=== PATIENT | male | born 1995 | race Caucasian/White ===

== ENCOUNTER 2024-07-13 14:48 | Emergency (ER) | payer MEDICARE, OTHER, SELFPAY ==
[2024-07-13 15:01] VITALS: BP 124/69; PULSE 111; RESP 20; TEMP 36.6; O2SAT 100
--- NOTE | 2024-07-13 15:09 | ED.WOUNDLAC ---
HPI - Wound/Laceration General Chief Complaint: Wound/Laceration Stated Complaint: Stitches Time Seen by Provider: 07/13/24 15:05 Source: patient Mode of arrival: ambulatory Limitations: no limitations History of Present Illness HPI narrative: Hernando is a 29 year old developmentally disabled/autistic male patient presenting to the clinic today with c/o a chin laceration. Parents report that he had balance issues and he fell this morning around 6:00 a.m. when getting up causing his chin laceration to re-open states he feel a few days earlier and the wound had scabbed over. Today he reopened the wound and has a more extensive laceration to the chin. No loss of consciousness. He does not take any blood thinners. Parents report that they did give him an Xanax to help keep him calm prior to coming into the clinic today. Related Data Home Medications ?Medication ?Instructions ?Recorded ?Confirmed ?Last Taken ?Type chlorpromazine 50 mg tablet 50 mg PO TID 07/15/19 01/31/24 Unknown History omega-3 fatty acids 1,000 mg 1,000 mg PO DAILY 07/15/19 01/31/24 Unknown History capsule (Fish Oil Concentrate) quetiapine 100 mg tablet (Seroquel) 100 mg PO DAILY 07/15/19 01/31/24 Unknown History topiramate 25 mg tablet (Topamax) 50 mg PO BID 07/15/19 01/31/24 Unknown History cetirizine 10 mg tablet (Zyrtec) 10 mg PO DAILY PRN 04/26/21 01/31/24 Unknown History cholecalciferol (vitamin D3) 50 50 mcg PO DAILY 08/28/22 01/31/24 Unknown History mcg (2,000 unit) capsule temazepam 30 mg capsule 30 mg PO QHS PRN 08/29/22 01/31/24 Unknown History alprazolam 1 mg tablet (Xanax) 1 mg PO TID PRN 01/31/24 01/31/24 Unknown History clonazepam 1 mg tablet 1 mg PO QHS 01/31/24 01/31/24 Unknown History benztropine 2 mg tablet mg 07/13/24 Unknown History chlorpromazine 200 mg tablet mg 07/13/24 Unknown History clonazepam 2 mg disintegrating mg 07/13/24 Unknown History tablet memantine 10 mg tablet mg 07/13/24 Unknown History moxifloxacin 0.5 % eye drops drp 07/13/24 Unknown History quetiapine 300 mg tablet mg 07/13/24 Unknown History topiramate 100 mg tablet mg 07/13/24 Unknown History Allergies Allergy/AdvReac Type Severity Reaction Status Date / Time aripiprazole Allergy Intermediate Vomiting Verified 08/29/22 14:47 Review of Systems Review of Systems: Pertinent positives per HPI. Patient denies any fever, chills, rash, headache, visual changes, dizziness, cough, runny nose, sore throat, shortness of breath, chest pain, palpitations, nausea, vomiting, diarrhea, constipation, abdominal pain, or any urinary issues. [facility] Past Medical History Medical History BMI 28.0-28.9,adult BMI 32.0-32.9,adult Symbolic dysfunction Poor sleep Hx of primary hypertension Vitamin D deficiency BMI 31.0-31.9,adult BMI 35.0-35.9,adult Hyperlipidemia BMI 38.0-38.9,adult BMI 37.0-37.9, adult Functional incontinence Mental disability BMI 39.0-39.9,adult Encounter for routine adult health examination without abnormal findings On skilled nursing drug therapy Hypothyroidism (acquired) Abnormal gait Family History Family History Father Family history of alcoholism Mother Family history of malignant neoplasm Other Diabetes mellitus Family history of mental disorder Family history of osteoarthritis Hypertension Social History Social History Smoking status: Never smoker Second hand tobacco smoke exposure: No Alcohol intake: never Lack of Transportation: No Lack of Food: Never True Current Housing: I Have Housing Concerned About Future Housing: No Difficulty Paying Gas/Electric Bills: No Difficulty Paying for Meds: No Currently Unemployed: No Education: High School Diploma/GED Difficulty w/ Childcare or Family Care: YES Living arrangements: with family Occupation/Education: other Additional occupation/education comments: disabled Gender identity (if verbalized by the patient): Male Comments At the time of my signature, I reviewed and agree with the nursing past medical, surgical, social, and family history. There is no relevant family history pertinent to the patient complaint. Exam Narrative: General: Well-developed, well nourished, in no apparent distress Head: Normocephalic, atraumatic. Cardio: Regular rate and rhythm, s1 and s2 normal, no murmur appreciated. Resp: Clear to auscultation bilaterally, no rhonchi, rales, wheezing or rubs. Integumentary: [place], warm, and dry, 2 cm chin laceration with mild to moderate gaping. Bleeding controlled. Course Course Emergency Course: Portions of this record may have been created with voice recognition software. Level of Care: Express Care Visit Vital Signs Vital signs: Vital Signs Temperature 36.6 C 07/13/24 15:01 Pulse Rate 111 H 07/13/24 15:01 Respiratory Rate 20 07/13/24 15:01 Blood Pressure 124/69 07/13/24 15:01 Pulse Oximetry 100 07/13/24 15:01 Temperature 36.6 C 07/13/24 15:01 Pulse Rate 111 H 07/13/24 15:01 Respiratory Rate 20 07/13/24 15:01 Blood Pressure 124/69 07/13/24 15:01 Pulse Oximetry 100 07/13/24 15:01 Vital signs reviewed Procedures Laceration Laceration 1: Date: 07/13/24 Site: face (chin) Description: linear and clean Depth: simple, single layer Local Anesthetic: lidocaine 1% and with epi Amount of anesthesia used (mL): 2 Pre-repair: wound explored and irrigated ====== Skin Level ====== Skin layer closed with: nylon Size (cm): 5-0 Number of sutures: 6 Technique: simple, interrupted ====== Subcutaneous Layer ====== ====== Muscle Layer ====== ====== Tendon Layer ====== Dressing: Verbal consent obtained for laceration repair. Risk and benefits explained and patient voiced understanding. Area was cleansed with antiseptic wound wash and a 27 gauge needle was then used to instill (2) ml of 1% lidocaine with epi into the wound edges. Area was prepped and draped using sterile technique. A 5-0 suture on a p needle was used to place (6) interrupted sutures bringing the wound edges together- well approximated. Patient tolerated procedure well. Sterile dressing applied. e MDM - Wound/Laceration MDM Narrative Medical decision making narrative: At the time of visit patient is resting comfortably on the exam table. Patient appears to be nontoxic. Procedures: Laceration repair was performed in the clinic today. Interrupted sutures were placed bringing the wound edges well approximate. Patient tolerated procedure well. Plan: Laceration repair was performed. Will place patient on Keflex to cover for secondary infections as this wound is approximately 9-10 hours old. Supportive measures were discussed with the patient and they voiced understanding discharge instructions and agrees to treatment plan. Return precautions reviewed Differential Diagnosis Differential diagnosis: Likely laceration, abscess, abrasion and avulsion of skin Discharge Plan Discharge Clinical Impression: Chin laceration Qualifiers: Encounter type: initial encounter Qualified Code(s): S01.81XA - Laceration without foreign body of other part of head, initial encounter Patient Disposition: Home, Self-Care Condition: Stable Instructions: Antibiotic Form, Care For Your Stitches (ED), Laceration (ED) Additional Instructions: Tdap given in the clinic today Take cephalexin as prescribed Leave bandage on for 24 hours then may remove and apply band aide covering as needed. Wash daily with soap and water and pat dry Do not scrub, scratch, or pick at the stitches. Keep wound clean and dry Skin sutures out in 7 days. Watch for signs and symptoms of infection- redness, streaking, swelling, purulent discharge, or increase in pain. Follow up with your PCP for suture removal or return to the [facility] care. Patient Language: Setswana Prescriptions: New cephalexin 500 mg capsule 500 mg PO Q12H 7 Days Qty: 14 0RF No Action quetiapine 300 mg tablet benztropine 2 mg tablet chlorpromazine 200 mg tablet topiramate 100 mg tablet clonazepam 2 mg tablet,disintegrating moxifloxacin 0.5 % drops memantine 10 mg tablet alprazolam [Xanax] 1 mg tablet 1 mg PO TID PRN clonazepam 1 mg tablet 1 mg PO QHS Rx Instructions: administer 30 minutes before bedtime temazepam 30 mg capsule 30 mg PO QHS PRN chlorpromazine 50 mg tablet 50 mg PO TID topiramate [Topamax] 25 mg tablet 50 mg PO BID quetiapine [Seroquel] 100 mg tablet 100 mg PO DAILY omega-3 fatty acids [Fish Oil Concentrate] 1,000 mg capsule 1,000 mg PO DAILY cetirizine [Zyrtec] 10 mg tablet 10 mg PO DAILY PRN divalproex [Depakote] 500 mg tablet,delayed release (DR/EC) 1,000 mg PO Q12H Qty: 270 1RF cholecalciferol (vitamin D3) 50 mcg (2,000 unit) capsule 50 mcg PO DAILY levothyroxine 100 mcg tablet See Rx Instructions .ROUTE .COMPLEX Qty: 90 1RF Dose Instruction: TAKE ONE TABLET BY MOUTH ONCE DAILY Rx Instructions: TAKE ONE TABLET BY MOUTH ONCE DAILY atorvastatin 10 mg tablet See Rx Instructions .ROUTE .COMPLEX Qty: 90 1RF Dose Instruction: TAKE 1 TABLET BY MOUTH EVERY DAY Rx Instructions: TAKE 1 TABLET BY MOUTH EVERY DAY Follow-up/Referrals: Valerio Oglesby MD [Primary Care Provider] - Time of Disposition: 15:40 Quality NIHSS Nursing Documentation ED NIHSS nursing documentation: reviewed/agree
[2024-07-13] MEDS: TETANUS,DIPHTHERIA,AC PERTUSSIS ADULT (0.5 ML) BOOSTRIX IM (15:18)
== END 2024-07-13 15:48 | disposition home or self-care (01) ==
PROVIDERS: Emergency Provider Nurse Practitioner Family; PCP Internal Medicine
DX: S01.81XA Laceration without foreign body of other part of head, initial encounter (principal); W19.XXXA Unspecified fall, initial encounter; Z23 Encounter for immunization; I10 Essential (primary) hypertension; E78.5 Hyperlipidemia, unspecified; F84.0 Autistic disorder; F79 Unspecified intellectual disabilities; E55.9 Vitamin D deficiency, unspecified
CPT/HCPCS: 12011; 90471; 90715; 99213; G0463

== ENCOUNTER 2024-07-20 14:14 | Emergency (ER) | payer MEDICARE, SELFPAY ==
--- NOTE | 2024-07-20 14:25 | ED.GENADULT ---
HPI - General Adult General Chief complaint: Wound/Laceration Stated complaint: stitches removal Time Seen by Provider: 07/20/24 14:25 Source: patient Mode of arrival: ambulatory Limitations: no limitations History of Present Illness HPI narrative: 29-year-old male patient presents to the Express with his parents for a suture removal. Patient had 6 stitches placed to the chin last weekend due to a fall. No parents states they have been cleaning it with soap water and putting antibiotic ointment on and keeping it covered. Denies any complications Related Data Home Medications ?Medication ?Instructions ?Recorded ?Confirmed ?Last Taken ?Type chlorpromazine 50 mg tablet 50 mg PO TID 07/15/19 01/31/24 Unknown History omega-3 fatty acids 1,000 mg 1,000 mg PO DAILY 07/15/19 01/31/24 Unknown History capsule (Fish Oil Concentrate) quetiapine 100 mg tablet (Seroquel) 100 mg PO DAILY 07/15/19 01/31/24 Unknown History topiramate 25 mg tablet (Topamax) 50 mg PO BID 07/15/19 01/31/24 Unknown History cetirizine 10 mg tablet (Zyrtec) 10 mg PO DAILY PRN 04/26/21 01/31/24 Unknown History cholecalciferol (vitamin D3) 50 50 mcg PO DAILY 08/28/22 01/31/24 Unknown History mcg (2,000 unit) capsule temazepam 30 mg capsule 30 mg PO QHS PRN 08/29/22 01/31/24 Unknown History alprazolam 1 mg tablet (Xanax) 1 mg PO TID PRN 01/31/24 01/31/24 Unknown History clonazepam 1 mg tablet 1 mg PO QHS 01/31/24 01/31/24 Unknown History benztropine 2 mg tablet mg 07/13/24 Unknown History chlorpromazine 200 mg tablet mg 07/13/24 Unknown History clonazepam 2 mg disintegrating mg 07/13/24 Unknown History tablet memantine 10 mg tablet mg 07/13/24 Unknown History moxifloxacin 0.5 % eye drops drp 07/13/24 Unknown History quetiapine 300 mg tablet mg 07/13/24 Unknown History topiramate 100 mg tablet mg 07/13/24 Unknown History Allergies Allergy/AdvReac Type Severity Reaction Status Date / Time aripiprazole Allergy Intermediate Vomiting Verified 08/29/22 14:47 Review of Systems Review of Systems: CONSTITUTIONAL: Denies fever, chills, or sweats. EYES: Denies visual changes, redness, or discharge. ENT: Denies rhinorrhea, congestion, sore throat, or otalgia. CARDIOVASCULAR: Denies chest pain, palpitations, or edema. RESPIRATORY: Denies cough or dyspnea. GASTROINTESTINAL: Denies abdominal pain, nausea, vomiting, or diarrhea. GENITOURINARY: Denies dysuria or hematuria. SKIN: Denies rash or itching. positive laceration to the chin with 6 sutures intact MUSCULOSKELETAL: Denies back pain, joint pain, or myalgia. NEUROLOGIC: Denies headache, numbness, or weakness. PSYCHIATRIC: Denies anxiety or depression. [facility] Past Medical History Medical History BMI 28.0-28.9,adult BMI 32.0-32.9,adult Symbolic dysfunction Poor sleep Hx of primary hypertension Vitamin D deficiency BMI 31.0-31.9,adult BMI 35.0-35.9,adult Hyperlipidemia BMI 38.0-38.9,adult BMI 37.0-37.9, adult Functional incontinence Mental disability BMI 39.0-39.9,adult Encounter for routine adult health examination without abnormal findings On half-way drug therapy Hypothyroidism (acquired) Abnormal gait Family History Family History Father Family history of alcoholism Mother Family history of malignant neoplasm Other Diabetes mellitus Family history of mental disorder Family history of osteoarthritis Hypertension Social History Social History Smoking status: Never smoker Second hand tobacco smoke exposure: No Alcohol intake: never Lack of Transportation: No Lack of Food: Never True Current Housing: I Have Housing Concerned About Future Housing: No Difficulty Paying Gas/Electric Bills: No Difficulty Paying for Meds: No Currently Unemployed: No Education: High School Diploma/GED Difficulty w/ Childcare or Family Care: YES Living arrangements: with family Occupation/Education: other Additional occupation/education comments: disabled Gender identity (if verbalized by the patient): Male Comments At the time of my signature I agree with nursing past medical history, surgical, social, and family history. There is no relevant family history pertinent to the presenting complaint. Exam Narrative: GENERAL: Well-appearing, well-nourished, and in no acute distress. HEAD: Normocephalic, atraumatic. EYES: PERRLA and EOMI. ENT: Nares clear, no rhinorrhea or epistaxis. Mucous membranes moist. NECK: Supple. No lymphadenopathy CHEST: Clear to auscultation. No respiratory distress. HEART: Regular rate and rhythm. No murmur heard. Normal peripheral pulses. ABDOMEN: Soft, nontender, nondistended, normal active bowel sounds. EXTREMITIES: Normal range of motion. No edema. SKIN: Warm, dry, no rash. patient has a horizontal laceration with 6 sutures intact. No surrounding erythema, no discharge present no warmth present. NEURO: No focal deficits. Alert and oriented x3. Course Course Level of Care: Express Care Visit Vital Signs Vital signs: Vital Signs Temperature 36.4 C L 07/20/24 14:26 Pulse Rate 86 07/20/24 14:26 Respiratory Rate 16 07/20/24 14:26 Blood Pressure 113/74 07/20/24 14:26 Pulse Oximetry 100 07/20/24 14:26 Temperature 36.4 C L 07/20/24 14:26 Pulse Rate 86 07/20/24 14:26 Respiratory Rate 16 07/20/24 14:26 Blood Pressure 113/74 07/20/24 14:26 Pulse Oximetry 100 07/20/24 14:26 Vital signs reviewed. Procedures Other Procedure Procedure 1: Other Procedure: Six sutures removed from the chin with suture removal kit. Antibiotic ointment was applied covered with Band-Aid. No complications and patient tolerated procedure well. Medical Decision Making MDM Narrative Medical decision making narrative: Plan care patient has removed the sutures and discharged home he will continue encouraging cleaning the area until fully healed. Differential Diagnosis Differential Diagnosis: Differential diagnosis: Paronychia, felon, cellulitis, flexor tenosynovitis, mallet finger, boutonniere deformity, flexor tendons, dislocated digits, unstable fracture, unstable ligamentous injury, closed space infection, carpal tunnel syndrome, contusion. Vital Signs Vital Signs: Vital Signs Temperature 36.4 C L 07/20/24 14:26 Pulse Rate 86 07/20/24 14:26 Respiratory Rate 16 07/20/24 14:26 Blood Pressure 113/74 07/20/24 14:26 Pulse Oximetry 100 07/20/24 14:26 Temperature 36.4 C L 07/20/24 14:26 Pulse Rate 86 07/20/24 14:26 Respiratory Rate 16 07/20/24 14:26 Blood Pressure 113/74 07/20/24 14:26 Pulse Oximetry 100 07/20/24 14:26 Critical Care Time Critical Care Time Critical Care Time: No Discharge Plan Discharge Clinical Impression: Encounter for removal of sutures Patient Disposition: Home, Self-Care Condition: Stable Instructions: Antibiotic Form, Laceration (ED) Additional Instructions: Continue to clean the wound with soap water and pat dry. Apply antibiotic ointment to the area and cover with Band-Aid until completely healed Watch for signs and symptoms of infection including increased redness, color discharge or any other concerning symptoms please follow-up with your primary care doctor. Patient Language: Guamanian Prescriptions: No Action quetiapine 300 mg tablet benztropine 2 mg tablet chlorpromazine 200 mg tablet topiramate 100 mg tablet clonazepam 2 mg tablet,disintegrating moxifloxacin 0.5 % drops memantine 10 mg tablet cephalexin 500 mg capsule 500 mg PO Q12H 7 Days Qty: 14 0RF alprazolam [Xanax] 1 mg tablet 1 mg PO TID PRN clonazepam 1 mg tablet 1 mg PO QHS Rx Instructions: administer 30 minutes before bedtime temazepam 30 mg capsule 30 mg PO QHS PRN chlorpromazine 50 mg tablet 50 mg PO TID topiramate [Topamax] 25 mg tablet 50 mg PO BID quetiapine [Seroquel] 100 mg tablet 100 mg PO DAILY omega-3 fatty acids [Fish Oil Concentrate] 1,000 mg capsule 1,000 mg PO DAILY cetirizine [Zyrtec] 10 mg tablet 10 mg PO DAILY PRN divalproex [Depakote] 500 mg tablet,delayed release (DR/EC) 1,000 mg PO Q12H Qty: 270 1RF cholecalciferol (vitamin D3) 50 mcg (2,000 unit) capsule 50 mcg PO DAILY levothyroxine 100 mcg tablet See Rx Instructions .ROUTE .COMPLEX Qty: 90 1RF Dose Instruction: TAKE ONE TABLET BY MOUTH ONCE DAILY Rx Instructions: TAKE ONE TABLET BY MOUTH ONCE DAILY atorvastatin 10 mg tablet See Rx Instructions .ROUTE .COMPLEX Qty: 90 1RF Dose Instruction: TAKE 1 TABLET BY MOUTH EVERY DAY Rx Instructions: TAKE 1 TABLET BY MOUTH EVERY DAY Follow-up/Referrals: Valeroi Oglesby MD [Primary Care Provider] - Time of Disposition: 14:38
[2024-07-20 14:26] VITALS: BP 113/74; PULSE 86; RESP 16; TEMP 36.4; O2SAT 100
== END 2024-07-20 14:45 | disposition home or self-care (01) ==
PROVIDERS: Emergency Provider Nurse Practitioner Family; PCP Internal Medicine
DX: S01.81XD Laceration without foreign body of other part of head, subsequent encounter (principal); W19.XXXD Unspecified fall, subsequent encounter; I10 Essential (primary) hypertension; E78.5 Hyperlipidemia, unspecified; E03.9 Hypothyroidism, unspecified; F79 Unspecified intellectual disabilities
CPT/HCPCS: 99211; G0463